=== PATIENT | female | born 2005 | race African-American/Black ===

== ENCOUNTER 2024-07-10 18:33 | Emergency (ER) | payer BC, OTHER ==
--- NOTE | 2024-07-10 19:58 | RAD REPORT ---
EXAMINATION: XR LEFT FOOT CLINICAL INDICATION: PAIN TECHNIQUE: Multiple projections of the left foot were obtained. COMPARISON: No prior exam. FINDINGS: No bone or joint abnormality seen.
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
[2024-07-10 21:06] VITALS: TEMP 97.7; O2SAT 100
[2024-07-10 21:07] VITALS: BP 130/80
== END 2024-07-10 20:44 | disposition home or self-care (01) ==
LOC: ER 18:33
DX: M79.672 Pain in left foot (principal); V43.53XA Car driver injured in collision with pick-up truck in traffic accident, initial encounter